=== PATIENT | male | born 1945 | race Caucasian/White ===

== ENCOUNTER → 2016-10-04 | Outpatient (CLI) | payer MEDICARE, MEDICAID ==
--- NOTE | 2016-10-05 11:37 | Diagnostic Imaging Report ---
Indication: COUGH Technique: Two views of the chest Comparison: none Findings: Atelectasis or scarring is seen at the left lateral lung base. The remainder the lungs and pleural spaces are clear. The heart is borderline enlarged. There are degenerative changes of the thoracic spine Impression: Left lateral basilar scarring or atelectasis No definite acute process Degenerative spondylosis
== END | disposition home or self-care (01) ==
LOC: RAD 17:34
DX: R50.9 Fever, unspecified (principal); R05 Cough
CPT/HCPCS: 71020